=== PATIENT | female | born 1980 | race Caucasian/White ===

== ENCOUNTER 2019-07-17 11:12 | Day surgery (SDC) | payer MEDICAID ==
[2019-07-09 10:53] LABS: Basophils # (auto) 0.1 uL; Basophils % (auto) 1.1 % (0.0-2.0); Eosinophils # (auto) 0.3 uL; Eosinophils % (auto) 6.1 % (0.0-7.0); Hematocrit 30.9 % (36.0-46.0); Hemoglobin 10.3 g/dL (12.2-16.2); Lymphocytes # (auto) 1.3 uL; Lymphocytes % (auto) 26.3 % (10.0-50.0); Mean Corpuscular Hemoglobin 29.2 pg (28.0-32.0); Mean Corpuscular Hgb Conc. 33.3 g/dL (32.0-36.0); Mean Corpuscular Volume 87.8 fL (80.0-100.0); Monocytes # (auto) 0.3 uL; Monocytes % (auto) 5.7 % (0.0-12.0); Neutrophils % (auto) 60.8 % (37.0-80.0); Platelet Count (auto) 173 10^3/uL (140-450); Red Blood Cells 3.52 10^6/uL (4.0-5.20); Red Cell Distribution Width 13.8 % (11.8-14.3)
[2019-07-09 11:08] LABS: INR < 0.93 (0.9-1.15); Partial Thromboplastin Time 23.4 sec (23.64-32.05)
[2019-07-09 11:35] LABS: Albumin 3.4 g/dL (3.4-5.0); BUN/Creatinine Ratio 15.9; Bilirubin, Total 0.2 mg/dL (0.2-1.0); Calcium 8.5 mg/dL (8.5-10.1); Total Protein 8.1 g/dL (6.4-8.2)
[2019-07-09 11:45] LABS: Potassium 5.9 mmol/L (3.5-5.1)
[2019-07-16 12:16] LABS: Urine WBC None Seen /hpf (0 - 5)
[2019-07-16 12:24] LABS: Urine Bacteria NONE SEEN /hpf (None Seen); Urine Blood Negative /uL (Negative)
[2019-07-16 12:25] LABS: Basophils # (auto) 0.1 uL; Basophils % (auto) 0.8 % (0.0-2.0); Eosinophils # (auto) 0.5 uL; Eosinophils % (auto) 5.4 % (0.0-7.0); Hematocrit 32.3 % (36.0-46.0); Hemoglobin 10.9 g/dL (12.2-16.2); Lymphocytes # (auto) 2.3 uL; Lymphocytes % (auto) 25.8 % (10.0-50.0); Mean Corpuscular Hemoglobin 29.4 pg (28.0-32.0); Mean Corpuscular Hgb Conc. 33.7 g/dL (32.0-36.0); Mean Corpuscular Volume 87.2 fL (80.0-100.0); Monocytes # (auto) 0.5 uL; Monocytes % (auto) 5.6 % (0.0-12.0); Neutrophils # (auto) 5.6 uL; Neutrophils % (auto) 62.4 % (37.0-80.0); Nucleated Red Blood Cells % 0.1 %; Platelet Count (auto) 204 10^3/uL (140-450); Red Blood Cells 3.71 10^6/uL (4.0-5.20); Red Cell Distribution Width 13.9 % (11.8-14.3); White Blood Cell 9.1 10^3/uL (4.4-10.8)
[2019-07-16 12:35] LABS: INR < 0.93 (0.9-1.15); Partial Thromboplastin Time 23.6 sec (23.64-32.05)
[2019-07-16 13:00] LABS: Albumin 3.5 g/dL (3.4-5.0); Calcium 8.6 mg/dL (8.5-10.1); Potassium 4.5 mmol/L (3.5-5.1)
[2019-07-16 13:01] LABS: BUN/Creatinine Ratio 16.8
[2019-07-16 13:04] LABS: Bilirubin, Total 0.2 mg/dL (0.2-1.0); Total Protein 8.1 g/dL (6.4-8.2)
[~2019-07-17] VITALS: Ht 172.7 cm; Wt 92.1 kg
[~2019-07-17 11:12] MED LIST: ATOR10TA PO; FURO20TA3 PO; GLIM4TAB42 PO; HYDR10TA26 PO; LISI-646 PO; METO-169 PO
[2019-07-17] MEDS ORDERED: CLINDAMYCIN 600MG IV 50 ML IV ONE (12:37)
[2019-07-17] MEDS ORDERED: ROPIVACAINE 0.5% (5MG/ML) 20ML AMPULE IJ ONE (14:32)
[2019-07-17] MEDS ORDERED: ONDANSETRON HCL 4 MG/2 ML VIAL ONE (15:23)
[2019-07-17] MEDS ORDERED: PROPOFOL 10 MG/ML 20 ML IV ONE (15:23)
[2019-07-17] MEDS ORDERED: MIDAZOLAM HCL 1MG/1ML-2 ML VIAL ONE (15:23)
[2019-07-17] MEDS ORDERED: fentaNYL CITRATE 100 MCG/2 ML VL ONE (15:23)
[2019-07-17] MEDS ORDERED: ACCU-CHEK COMFORT CURVE STRIP VI ONE (15:30)
[2019-07-17] MEDS ORDERED: MORPHINE SULFATE 4 MG/ML SYR/VIAL IV PRN (15:30)
[2019-07-17] MEDS ORDERED: fentaNYL CITRATE 100 MCG/2 ML VL IV PRN (15:30)
[2019-07-17] MEDS ORDERED: HYDROmorphone HCL 2 MG/ML VL IV PRN (15:30)
[2019-07-17] MEDS ORDERED: METOCLOPRAMIDE HCL 5MG/ml INJ 2ml VIAL IV PRN (15:30)
[2019-07-17] MEDS ORDERED: KETOROLAC TROMETH 30 MG/ML 1ML VIAL IV ONE (15:30)
[2019-07-17 16:41] VITALS: BP 138/83
== END 2019-07-17 16:56 | disposition home or self-care (01) ==
LOC: SUR 11:12
PROVIDERS: ATTEND Podiatrist Foot & Ankle Surgery
DX: Q66.89 Other specified congenital deformities of feet (principal); E11.22 Type 2 diabetes mellitus with diabetic chronic kidney disease; I12.9 Hypertensive chronic kidney disease with stage 1 through stage 4 chronic kidney disease, or unspecified chronic kidney disease; N18.4 Chronic kidney disease, stage 4 (severe); E66.9 Obesity, unspecified; Z79.899 Other long term (current) drug therapy; Z98.890 Other specified postprocedural states; Z88.0 Allergy status to penicillin; Z68.30 Body mass index [BMI] 30.0-30.9, adult; Z98.891 History of uterine scar from previous surgery
CPT/HCPCS: 29999; 36415; 80053; 81001; 82962; 84702; 85025; 85610; 85730; 93005; J2250; J2405; J2704; J2795; J3010; J3490

== ENCOUNTER 2019-10-15 11:48 | Emergency (ER) | payer MEDICAID ==
[~2019-10-15] VITALS: Ht 368.3 cm; Wt 86.2 kg
[2019-10-15] MEDS ORDERED: ETOMIDATE (2MG/ML) 20ML VIAL IV ONE ×3 (11:53→12:15)
[2019-10-15] MEDS ORDERED: MIDAZOLAM DRIP 50 mg/50mL 50 ML IV ONE (11:53)
[2019-10-15] MEDS: MIDAZOLAM DRIP 50 mg/50mL 50 ML IV SCH ×2 (12:00→14:16)
[2019-10-15] MEDS ORDERED: LEVOFLOXACIN 500MG 100 ML IV ONE (12:15)
[2019-10-15] MEDS ORDERED: CLINDAMYCIN 600MG IV 50 ML IV ONE ×2 (12:15)
[2019-10-15] MEDS ORDERED: SUCCINYLCHOLINE CHLORIDE 20 MG/ML 10ML VIAL IV ONE (12:15)
[2019-10-15] MEDS ORDERED: InsuLIN R (HUMAN) 100 UNITS in SODIUM CHL 0.9% 99 ML IV SCH (12:16)
[2019-10-15] MEDS ORDERED: PROPOFOL 100 ML IV ONE (12:29)
[2019-10-15] MEDS ORDERED: ACETAMINOPHEN 650 MG RECT SUPP PR ONE ×2 (12:30→12:31)
[2019-10-15] MEDS ORDERED: DEXTROSE (50%) 50ML SYRG IV PRN (12:30)
[2019-10-15] MEDS ORDERED: NOREPINEPHRINE 8 MG/250ML KIT 250 ML IV ONE (12:37)
[2019-10-15] MEDS: PROPOFOL 100 ML IV SCH ×3 (12:40→16:35)
[2019-10-15] MEDS ORDERED: NOREPINEPHRINE 8 MG/250ML KIT 250 ML IV SCH (12:45)
[2019-10-15 13:05] LABS: Red Blood Cells 3.73 10^6/uL (4.0-5.20); Red Cell Distribution Width 12.6 % (11.8-14.3)
[2019-10-15 13:06] LABS: Hematocrit 32.7 % (36.0-46.0); Hemoglobin 11.1 g/dL (12.2-16.2); Mean Corpuscular Hemoglobin 29.8 pg (28.0-32.0); Mean Corpuscular Hgb Conc. 34.1 g/dL (32.0-36.0); Mean Corpuscular Volume 87.5 fL (80.0-100.0); White Blood Cell 8.3 10^3/uL (4.4-10.8)
[2019-10-15 13:23] LABS: Anion Gap 20 (5-15); Blood Alcohol < 3.0 mg/dL (0-5); Blood Urea Nitrogen 60 mg/dL (7-18); Calcium 7.6 mg/dL (8.5-10.1); Carbon Dioxide 17 mmol/L (21-32); Chloride 87 mmol/L (98-107); Potassium 3.8 mmol/L (3.5-5.1); Sodium 124 mmol/L (136-145)
[2019-10-15 13:24] LABS: Lactic Acid w/Reflex 3.4 mmol/L (0.4-2.0)
[2019-10-15 13:27] LABS: Phosphorus 3.6 mg/dL (2.5-4.90)
[2019-10-15 13:29] LABS: Urine Amorphous Crystal FEW /hpf (None Seen); Urine Bacteria NONE SEEN /hpf (None Seen); Urine Blood 2+ /uL (Negative); Urine Specific Gravity 1.014 (1.001-1.035); Urine WBC 40 /hpf (0 - 5); Urine WBC Clumps PRESENT /hpf (None Seen)
[2019-10-15 13:30] LABS: Basophils % (manual) 0 (0.0-2.0); Blast Cells 0; Eosinophils % (manual) 0 (0-7); Metamyelocytes % 0; Myelocytes % 0; Promyelocytes % 0; Reactive Lymphocytes 0
[2019-10-15] MEDS ORDERED: IBUPROFEN 100MG/5ML ORAL SUSP 100 MG/5 ML UD GT PRN (13:30)
[2019-10-15] MEDS ORDERED: ACETAMINOPHEN 650 mg PER 20 mL UD GT ONE (13:30)
[2019-10-15 13:32] LABS: Alanine Aminotransferase 37 U/L (13-56); Alkaline Phosphatase 103 U/L (45-117); Aspartate Aminotransferase 67 U/L (15-37); BUN/Creatinine Ratio 11.7; Bilirubin, Total 0.9 mg/dL (0.2-1.0); GFR African American 12 mL/min; GFR Non-African American 10 mL/min; Total Protein 6.4 g/dL (6.4-8.2)
[2019-10-15 13:36] LABS: Alcohol, Urine < 3.0 mg/dL (0-5); Amphetamine Screen, Urine NEGATIVE (NEGATIVE); Barbiturate Scree,Urine NEGATIVE (NEGATIVE); Benzodiazephine Screen, Urine NEGATIVE (NEGATIVE); Cannabinoid Screen, Urine NEGATIVE (NEGATIVE); Cocaine Screen, Urine NEGATIVE (NEGATIVE); Opiate Scree,Urine NEGATIVE (NEGATIVE); Phencyclidine Screen, Urine NEGATIVE (NEGATIVE)
[2019-10-15 13:37] LABS: Glucose 676 mg/dL (74-106)
[2019-10-15 13:38] LABS: Band Neutrophils % (manual) 21; Lymphocytes % (manual) 4 (10.0-50.0); Monocytes % (manual) 7 (0-12)
[2019-10-15 13:39] LABS: Platelet Count (auto) 36 10^3/uL (140-450)
[2019-10-15] MEDS: ACCU-CHEK COMFORT CURVE STRIP VI SCH ×4 (13:41→18:14)
[2019-10-15] MEDS ORDERED: NITROGLYCERIN 0.4 MG SL TAB SL PRN (14:00)
[2019-10-15] MEDS ORDERED: CLINDAMYCIN 300MG IV 50 ML IV SCH (14:00)
[2019-10-15] MEDS ORDERED: ONDANSETRON HCL 4 MG/2 ML VIAL IV PRN (14:00)
[2019-10-15] MEDS ORDERED: MORPHINE SULF INJ 2 MG/ML SYRINGE 1ML IV PRN (14:00)
[2019-10-15] MEDS ORDERED: ASPirin-EC 81 mg tab PO ONE (14:00)
[2019-10-15] MEDS: SODIUM CHLORIDE 0.9% 1,000 ML IV SCH ×2 (14:21→14:57)
[2019-10-15 14:23] VITALS: BP 106/62
[2019-10-15 16:15] VITALS: BP 124/60
[2019-10-15] MEDS ORDERED: SODIUM CHLORIDE 0.9% 1,000 ML IV SCH ×2 (16:16→18:16)
[2019-10-15 17:01] LABS: Protein, Urine 553.3 mg/dL (0.0-11.9)
[2019-10-15 18:40] VITALS: BP 99/58
[2019-10-15 19:00] LABS: BUN/Creatinine Ratio 11.9; Calcium 6.2 mg/dL (8.5-10.1)
[2019-10-15 19:08] VITALS: BP 99/61
[2019-10-15] MEDS ORDERED: ATORVASTATIN 20 MG TAB PO SCH (22:00)
[2019-10-16] MEDS ORDERED: cefTRIAXone 1GM/50ML D5W 50 ML IV SCH (09:00)
[2019-10-16] MEDS ORDERED: ASPirin-EC 81 mg tab PO SCH (10:00)
== END 2019-10-15 19:48 | disposition short-term general hospital (02) ==
LOC: ER 11:48 → EDBD 11:48 → TELE 11:49 → UNDOADMIN 11:49 → ER 19:48
DX: A41.9 Sepsis, unspecified organism (principal); I60.9 Nontraumatic subarachnoid hemorrhage, unspecified; R41.82 Altered mental status, unspecified; G93.41 Metabolic encephalopathy; E11.10 Type 2 diabetes mellitus with ketoacidosis without coma; J18.9 Pneumonia, unspecified organism; E86.0 Dehydration; Z88.0 Allergy status to penicillin; Z79.899 Other long term (current) drug therapy
CPT/HCPCS: 31500; 36415; 36556; 36600; 70450; 71045; 74176; 76775; 80048; 80053; 80307; 80320; 81001; 81025; 82010; 82570; 82805; 82962; 83036; 83605; 83735; 83880; 83930; 84100; 84156; 84300; 84484; 85007; 85027; 86141; 87040; 87070; 87077; 87086; 87088; 87147; 87186; 87205; 87804; 93306; 96361; 96365; 96366; 96367; 96368; 99152; 99153; 99291; J1815; J1956; J2250; J2704; J3490; 94002